=== PATIENT | male | born 1940 | race Caucasian/White ===

== ENCOUNTER 2017-04-28 16:55 | Inpatient (IN) | payer MEDICARE ==
[~2017-04-28] VITALS: Ht 182.9 cm; Wt 105.0 kg
[2017-04-28] MEDS ORDERED: COUM1TAB17 PO (17:07)
[2017-04-28] MEDS ORDERED: ROPI0.5T PO (17:07)
[2017-04-28] MEDS ORDERED: ATIV1TAB10 PO (17:07)
[2017-04-28] MEDS ORDERED: KEPP250T5 PO (17:07)
[2017-04-28] MEDS ORDERED: BENA25TA9 PO (17:07)
[2017-04-28] MEDS ORDERED: TYLE500T78 PO (17:07)
[2017-04-28] MEDS ORDERED: NS 1,000 ML IV SCH (17:57)
[2017-04-28 18:03] LABS: BASO % 0.3 % (0.0-1.0); EOS # 0.1 K/mm3 (0.0-0.50); EOS % 1.9 % (0.0-3.0); LARGE UNSTAINED CELL # 0.1 K/mm3 (0.0-0.4); LARGE UNSTAINED CELL % 1.4 % (0.0-4.0); LYMPH % 11.5 % (24.0-44.0); MEAN CORPUSCULAR HGB CONC 33.1 g/dl (32.0-36.5); MEAN CORPUSCULAR VOLUME 93.8 fl (80.0-96.0); MONO # 0.4 K/mm3 (0.0-0.8); MONO % 4.9 % (0.0-5.0); NEUTROPHILS % 80.1 % (36.0-66.0); PLATELET COUNT, AUTOMATED 172 k/mm3 (150-450); WHITE BLOOD COUNT 7.5 K/mm3 (4.0-10.0)
[2017-04-28 18:10] LABS: ALBUMIN 4.3 GM/DL (3.2-5.2); ALBUMIN/GLOBULIN RATIO 1.43 (1.00-1.93); ALKALINE PHOSPHATASE 108 U/L (45-117); ALT/SGPT 56 U/L (12-78); ANION GAP 8 MEQ/L (8-16); AST/SGOT 54 U/L (15-37); BILIRUBIN,DIRECT 0.2 MG/DL (0.0-0.2); BILIRUBIN,TOTAL 0.8 MG/DL (0.2-1.0); BLOOD UREA NITROGEN 14 MG/DL (7-18); CALCIUM LEVEL 8.7 MG/DL (8.8-10.2); CARBON DIOXIDE LEVEL 28 MEQ/L (21-32); CHLORIDE LEVEL 103 MEQ/L (98-107); CREATININE FOR GFR 1.18 MG/DL (0.70-1.30); GLOMERULAR FILTRATION RATE > 60.0 (>42); GLUCOSE, FASTING 139 MG/DL (83-110); PHOSPHORUS LEVEL 3.5 MG/DL (2.5-4.9); POTASSIUM SERUM 4.1 MEQ/L (3.5-5.1); SODIUM LEVEL 139 MEQ/L (136-145); TOTAL PROTEIN 7.3 GM/DL (6.4-8.2)
--- NOTE | 2017-04-28 18:39 | REP ---
CT BRAIN WITHOUT CONTRAST: 04/28/2017. Comparison: 05/29/2016. Clinical history: Status epilepticus. Ventricles are midline, symmetric and their size proportionate to the mild diffuse atrophy. Atrophy is unchanged and is greatest in the temporal and frontal lobes but age appropriate. There are heterogeneous low attenuation white matter changes bilaterally in the periventricular region representing small-vessel ischemic change. There is no vascular territory infarct, intracranial hemorrhage, mass or mass effect. No extra-axial fluid collections. Calcifications in the right basal ganglia are normal findings for this age group. Brainstem unremarkable. Cerebellum symmetric and grossly intact. Basal cisterns intact. There are vascular calcifications in the carotid siphons, right greater than left. Mastoids and visualized sinuses were clear. The skull base and calvarium show no fracture or focal lesion. Impression: 1. Chronic small vessel white matter ischemic change of aging with mild cerebral atrophy in proportion of ventricular size. No intracranial hemorrhage, acute infarct, mass or edema. No midline shift. Stable exam. Signed by Kei Viera MD 04/29/2017 11:38 A
[2017-04-28 18:54] LABS: INR 2.13
--- NOTE | 2017-04-28 19:11 | REP ---
AP PORTABLE CHEST: 04/28/2017: Clinical history: Status epilepticus. No comparison study. Findings: Semi-erect portable chest with lordotic projection limits evaluation of posterior and lower lung zones. Sternotomy wires and cardiac valve seen on abdominal CT representing an aortic valve replacement air. A there is further enlargement of the cardiac silhouette by low-level inflation semi-erect lordotic portable technique. No fredo edema. The aorta is calcified and tortuous. Airway is intact. Underlying fibrotic changes are seen. The posterior lower lung zones are not evaluated. I could not exclude posterior effusions or infiltrates. No gross infiltrate or fredo edema. There is a right total shoulder arthroplasty. Impression: 1. Cardiomegaly with left and right heart enlargement suspected with sternotomy wires and aortic valve replacement. 2. Tortuous calcified aorta. 3. Somewhat hypoinflated chest without gross infiltrate. Although posterior lower lung zone infiltrates or effusions would not be visible on this lordotic portable somewhat hypoinflated study. Signed by Kei Viera MD 04/29/2017 11:40 A
[2017-04-28 19:36] LABS: METHADONE URINE NEGATIVE (NEGATIVE)
[2017-04-28] MEDS ORDERED: DIPH50CA PO (20:12)
[2017-04-28] MEDS ORDERED: KEPP500T5 PO (20:12)
[2017-04-28] MEDS: NS 1,000 ML IV SCH (20:15)
[2017-04-28] MEDS ORDERED: LORA-376 PO (20:15)
[2017-04-28] MEDS ORDERED: LORazepam 2 MG/ML VIAL (J2060) IV PRN (20:15)
[2017-04-28] MEDS ORDERED: WARF-23 PO (20:18)
[2017-04-28] MEDS ORDERED: WARF-21 PO (20:18)
[2017-04-28] MEDS ORDERED: rOPINIRole 0.25 MG TAB(REQUIP) PO PRN (20:45)
--- NOTE | 2017-04-28 21:15 | IPNPDOC ---
Text Note Date of Service The patient was seen on 04/28/17. NOTE Patient febrile overnight, which could be potential cause of infection. UA neg, cxr neg with no respiratory complaint. f/u Bcx, cardiac marker, crp, consider getting tte, starting rocephin and vanco, MRSA sceen. respiratory panel.IVF VS,Fishbone, I+O VS, Fishbone, I+O Laboratory Tests 04/28/17 17:31 Red Blood Count 4.92, Mean Corpuscular Volume 93.8, Mean Corpuscular Hemoglobin 31.0, Mean Corpuscular Hemoglobin Concent 33.1, Red Cell Distribution Width 14.0 , Neutrophils (%) (Auto) 80.1 H, Lymphocytes (%) (Auto) 11.5 L, Monocytes (%) ( Auto) 4.9, Eosinophils (%) (Auto) 1.9, Basophils (%) (Auto) 0.3, Neutrophils # ( Auto) 6.0, Lymphocytes # (Auto) 1.0 L, Monocytes # (Auto) 0.4, Eosinophils # ( Auto) 0.1, Basophils # (Auto) 0.0 Vital Signs Date Time Temp Pulse Resp B/P (MAP) Pulse Ox O2 Delivery O2 Flow Rate FiO2 04/28/17 20:47 92 147/83 (104) 97 04/28/17 17:00 97.7 16 Room Air RALPH VOSS MD Apr 28, 2017 21:15
--- NOTE | 2017-04-28 21:21 | HPE ---
DATE OF ADMISSION: 04/28/2017 PRIMARY CARE PROVIDER: Mercy Burton DO NEUROLOGIST: Gui Syed M.D. at [facility] in [place]. CHIEF COMPLAINT: Seizure. HISTORY OF PRESENT ILLNESS: This is a 77-year-old male patient from [place], [place] with underlying medical history of aortic valve replacement, history of complex partial seizure, last seizure 10 months ago, first diagnosed 2014, cataracts, kidney stones, hernia. As per patient's , patient was doing some work in their cottage, was a bit fatigued and also dehydrated, around 12 noon patient developed an episode of seizure. As per patient's , his seizure is usually patient stares blindly into space, no tonic-clonic movement, but is following commands, but alert and oriented times zero. Patient's instructed the patient and assisted the patient into the cottage, giving the patient lorazepam 0.5 mg times two tablets and subsequently patient went to sleep and woke up at 3 p.m. Around 3:30 p.m., patient had another episode lasting about less than 3 minutes. Subsequently, patient presented to the hospital. In the hospital waiting room, patient had another episode, was reported to be incontinent. No tonic-clonic movement. No tongue biting. No foaming. Patient had altered mentation during the episodes, but no tonic-clonic movement. As per patient's , this is a typical presentation of the patient's seizures. The neurology fellow from [facility] was contacted who recommended increasing the dose of Keppra to 3000 mg once a day and followup with outpatient neurologist, after discussion with Dr. Chowdhury in the emergency room, it is recommended that patient be observed overnight in the hospital given three episodes of seizure. The patient is currently alert and oriented times three, a bit fatigued. Denies any chest pain , pressure or discomfort. Denies any focal neurological deficits, is almost back to baseline. Mena catheter was placed in the emergency room to obtain urine sample. Denies any headache, vision change. No head trauma, no falls. ALLERGIES: Allergic to CEFDINIR, CIPRO, METHYLPREDNISONE, and MORPHINE. PAST MEDICAL HISTORY: 1. Complex partial seizure, last seizure episode 10 months ago. 2. Aortic valve replacement. 3. Cataracts. 4. Hernia. 5. Kidney stones. Denies history of CVA or heart attack. PAST SURGICAL HISTORY: 1. Bilateral cataract surgery. 2. Cholecystectomy. 3. Hernia repair. 4. Bilateral knee replacement. 5. Right shoulder replacement. SOCIAL HISTORY: Quit smoking in 1970. Drank one shot of whiskey 2 nights ago, only drinks occasionally, very rarely, maybe once a week to once every 2 weeks. Denies any other illicit drug use. FAMILY HISTORY: Denies family history of premature CVA or premature myocardial infarctions (MIs). REVIEW OF SYSTEMS: Positive for fatigue, seizure episode, and all other review of systems are negative. HOME MEDICATIONS: - acetaminophen 1000 mg by mouth four times a day as needed - Benadryl 50 mg by mouth nightly - Keppra 3000 mg by mouth nightly - lorazepam 0.5 mg by mouth as needed for seizure, 1 mg by mouth as needed for seizure - Requip 0.5 mg by mouth nightly for restless legs - Coumadin 5 mg by mouth three times a week, 7.5 mg by mouth four times a week on Thursday, Thursday, Thursday, and Thursday PHYSICAL EXAMINATION: VITAL SIGNS: Temperature 97.7, pulse 88, blood pressure 149/78, pulse oximetry 97% on room air, respirations 16. GENERAL: Patient alert and oriented times three, in no acute distress. Responding to questions appropriately. HEENT: Normocephalic, atraumatic. PULMONARY: Bilaterally clear to auscultation. CARDIAC: Regular rate and rhythm. 2/6 systolic murmur. ABDOMEN: Soft, nontender, nondistended. Positive bowel sounds. EXTREMITIES: No edema bilateral lower extremities. NEUROLOGIC: Cranial nerves II-XII grossly intact. Able to move all four extremities. No focal neurological deficits. LABORATORY DATA: WBC 7.5, hemoglobin and hematocrit 15.3/46.1, platelets 172. Chemistry: Sodium 139, potassium 4.1, chloride 103, bicarbonate 28, BUN 14, creatinine 1.18, lactic acid 3.6. CT scan of the head shows chronic small vessel white matter ischemic changes of aging with mild cerebral atrophy in proportion to ventricular size. ASSESSMENT AND PLAN: This is a 77-year-old male patient with underlying medical history of complex partial seizure diagnosed August 2015, last seizure 10 months ago, aortic valve replacement, osteoarthritis with bilateral knee replacements and right shoulder replacement, kidney stones, presented with three episodes of seizure. 1. Seizure episodes. Dr. Chowdhury from emergency room has discussed with the neurology fellow covering at [facility]. Recommending increasing Keppra to 3000 mg by mouth nightly and IV hydration, observe overnight, and outpatient followup with neurology in [place], [place]. CT scan appreciated. Neurologic checks. Seizure precautions. IV fluids for hydration. Lactic acid. Urine toxicology appreciated. Keppra level. Patient reported compliance to medications. Other than fatigue, exhaustion, and also dehydration, no other problems reported and no other inciting events or medication changes. 2. Lactic acidosis, possibly secondary to dehydration and seizure. IV fluids for hydration. Repeat lactic acid. 3. Aortic valve replacement. Patient on anticoagulation with Coumadin. Followup INR. Adjust Coumadin dosage as needed. 4. History of kidney stones. Patient currently asymptomatic. Urinalysis appreciated. Will discontinue Mena catheter in the morning. Kidney function appreciated. IV fluids for hydration. 5. Deep venous thrombosis (DVT) prophylaxis. Patient has INR of 2.13. Continue Coumadin. Followup INR. DISPOSITION: Patient admitted for monitoring overnight. Potential discharge over the next 1-2 days. Patient developed fever overnight. culture sent started zosyn and vanco, need to r/o endocarditis given artificial aortic valve. TTE ordered MTDD
[2017-04-28] MEDS: ACETAMINOPHEN TAB 650MG DOSE (2X325MG) PO PRN (21:23)
[2017-04-28] MEDS: diphenhydrAMINE 50 MG CAP PO SCH (21:23)
[2017-04-28] MEDS ORDERED: SODIUM CHLORIDE 0.9% 1000 ML IV ONE (21:30)
[2017-04-28] MEDS: hydrALAZINE INJ 20 MG/ML VIAL IV SCH (23:31)
[2017-04-28] MEDS: PIPERACILLIN/TAZOBACTAM SOD 3.375 GM in D5W MINI-BAG PLUS 50 ML IV SCH (23:49)
[2017-04-29] VITALS (10 sets, daily range): BP systolic 114–155; BP diastolic 68–89; PULSE 80–84
[2017-04-29] MEDS ORDERED: VANCOMYCIN HCL 1,000 MG, VIAL MATE ADAPTER 1 EACH in D5W 250 ML IV ONE ×3
[2017-04-29] MEDS ORDERED: TEMAZEPAM 7.5 MG CAP PO ONE (00:45)
[2017-04-29] MEDS: ACETAMINOPHEN TAB 650MG DOSE (2X325MG) PO PRN (03:48)
--- NOTE | 2017-04-29 04:19 | PHACANCOPD ---
PHARMACY VANCOMYCIN DOSING Pt Demographics Demographics Patient Age:77 , Weight:102.000 , Gender: male Adjusted Body Weight Date: 04/29/17, Adjusted Body Weight: [87.36] Kg Vancomycin Vancomycin indication: ENDOCARDITIS Vancomycin Target Ranges: 15-20 mcg/ml Vancomycin Load Y/N: No Load Dose Date Time Vancomycin Load Dose: Date: Time: Vancomycin Dose Date: 04/29/17. Current Vancomycin Dose: [1g@0100,THEN q12H@09] Intermittent Dosing?: No Labs Labs Laboratory Tests 04/28/17 17:31 Red Blood Count 4.92, Mean Corpuscular Volume 93.8, Mean Corpuscular Hemoglobin 31.0, Mean Corpuscular Hemoglobin Concent 33.1, Red Cell Distribution Width 14.0 , Neutrophils (%) (Auto) 80.1 H, Lymphocytes (%) (Auto) 11.5 L, Monocytes (%) ( Auto) 4.9, Eosinophils (%) (Auto) 1.9, Basophils (%) (Auto) 0.3, Neutrophils # ( Auto) 6.0, Lymphocytes # (Auto) 1.0 L, Monocytes # (Auto) 0.4, Eosinophils # ( Auto) 0.1, Basophils # (Auto) 0.0 Micro Microbiology 04/29/17 Blood Culture, Received Pending 04/28/17 Blood Culture, Received Pending 04/28/17 Urine Culture, Received Pending Creatinine Clearance Date:04/29/17. Creatinine Clearance: [63.7]. Pending Labs Vanco trough due 04/30 0800 Assessment and Plan Maintaining Current Dose?: Yes Reason for dose change: No Dose Change Pharmacist Note Pharmacist Note Date: 04/29/17. Pharmacist note:77 YOM: scr=1.18,CRCL=63.7(CALCULATED) ENDOCARDITIS (15-20):PIP-TAZO 3.375 gm IV q8H + Vancomycin per consult:Gave Vanco 1 GM@04/29@0100,then 1 gm iv Q12h@09: trough scheduled for 04/30@0800(prior to 4th dose DENITA LANTIGUA PHARMACY Apr 29, 2017 04:19
[2017-04-29] MEDS: NS 1,000 ML IV SCH ×2 (04:22→21:05)
[2017-04-29 05:53] LABS: MEAN CORPUSCULAR HEMOGLOBIN 32.3 pg (27.0-33.0); MEAN CORPUSCULAR HGB CONC 34.8 g/dl (32.0-36.5); MEAN CORPUSCULAR VOLUME 92.8 fl (80.0-96.0); RED CELL DISTRIBUTION WIDTH 13.9 % (11.5-14.5)
--- NOTE | 2017-04-29 05:59 | ECGEPIP ---
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
[2017-04-29 06:00] LABS: INR 2.41
[2017-04-29] MEDS: hydrALAZINE INJ 20 MG/ML VIAL IV SCH ×4 (06:00→23:53)
[2017-04-29 06:08] LABS: ALBUMIN 3.3 GM/DL (3.2-5.2); ALBUMIN/GLOBULIN RATIO 1.18 (1.00-1.93); ALKALINE PHOSPHATASE 76 U/L (45-117); ALT/SGPT 43 U/L (12-78); ANION GAP 5 MEQ/L (8-16); AST/SGOT 32 U/L (15-37); BLOOD UREA NITROGEN 13 MG/DL (7-18); CALCIUM LEVEL 7.7 MG/DL (8.8-10.2); CARBON DIOXIDE LEVEL 27 MEQ/L (21-32); CHLORIDE LEVEL 104 MEQ/L (98-107); CREATININE FOR GFR 1.03 MG/DL (0.70-1.30); GLOMERULAR FILTRATION RATE > 60.0 (>42); GLUCOSE, FASTING 120 MG/DL (83-110); MAGNESIUM LEVEL 1.9 MG/DL (1.8-2.4); SODIUM LEVEL 136 MEQ/L (136-145); TOTAL PROTEIN 6.1 GM/DL (6.4-8.2)
[2017-04-29] MEDS: PIPERACILLIN/TAZOBACTAM SOD 3.375 GM in D5W MINI-BAG PLUS 50 ML IV SCH ×3 (06:15→22:30)
[2017-04-29] MEDS: SENOKOT S TAB PO SCH ×2 (09:00→21:06)
[2017-04-29] MEDS: VANCOMYCIN HCL 1,000 MG, VIAL MATE ADAPTER 1 EACH in D5W 250 ML IV SCH ×2 (09:14→21:06)
--- NOTE | 2017-04-29 15:39 | IPN ---
DATE: 04/29/2017 SUBJECTIVE: The patient tells me that he is feeling fine at this time. He has no complaints. He denies fevers, chills, chest pain, shortness of breath, nausea, or vomiting. OBJECTIVE: VITAL SIGNS: Maximum temperature (T-max) 103.9, temperature current 98.8, pulse 74, respiratory rate 20, blood pressure 131/84, oxygen saturation 96% on room air. GENERAL: He is a pleasant, elderly, man who appears younger than his stated age, laying flat in bed in no distress. He is accompanied by his . NEUROLOGIC: Cranial nerves II-XII are grossly intact. HEENT: He has moist mucous membranes. No elevation in central venous pressure (CVP). CARDIOVASCULAR: S1, S2, regular. Prominent mechanical S2. RESPIRATORY: Clear. ABDOMEN: Benign. EXTREMITIES: No clubbing, cyanosis, or edema. LABORATORY STUDIES: WBC 9.0, hemoglobin 12.9, hematocrit 37.1, platelet count 154. Chemistry panel: Sodium 136, potassium 4.0, chloride 104, bicarbonate 27, BUN 13, creatinine 1.0, lactic acid is 1.1 resolved from 3.6 at the time of admission, CK is 429 down from 591. Two sets of cardiac enzymes are negative. CRP is 0.97. INR is 2.4. A Keppra level is pending. Otherwise, urine toxicology is negative. Microbiology: Two sets of blood cultures are pending. A urine culture is pending. IMAGING STUDIES: The patient had a CT scan of the head which revealed chronic small vessel white matter ischemic changes. No intracranial hemorrhage, acute infarct, mass or edema. Chest x-ray revealed tortuous calcified aorta, cardiomegaly with left and right heart enlargement suspected with sternotomy wires and aortic valve replacement. ASSESSMENT AND PLAN: This is a 77-year-old man admitted with breakthrough complex partial seizures and fever. PROBLEMS: 1. Breakthrough complex partial seizures. Dr. Chowdhury in the emergency room was in contact with [facility] where the patient follows for neurology services. They had advised increasing his Keppra to 3 grams by mouth nightly and IV hydration with overnight observation. This has been completed. The patient has had no further seizure-like episodes overnight and is doing quite well. 2. Fever, unclear etiology but given that the patient is having breakthrough seizures and has an aortic valve replacement, an echocardiogram has been ordered and blood cultures. The patient has been empirically started on broad-spectrum antibiotics. We will continue to followup his cultures and followup echocardiogram report. Should they both be negative, we could likely discontinue antibiotics after 48 hours. 3. Aortic valve replacement. The patient is on Coumadin. We will followup his international normalized ratio (INR). He is just barely subtherapeutic. We will continue to monitor him. 4. Lactic acidosis, likely related to seizures, resolved. 5. Mild rhabdomyolysis, likely secondary to seizures, resolved. 6. History of kidney stones, asymptomatic at this time. 7. Deep vein thrombosis (DVT) prophylaxis. The patient is on Coumadin. 8. Restless leg syndrome. The patient is on Requip.
[2017-04-29] MEDS ORDERED: WARFARIN SOD 7.5 MG TAB PO SCH (17:00)
[2017-04-29] MEDS: diphenhydrAMINE 50 MG CAP PO SCH (21:06)
[2017-04-29] MEDS: levETIRAcetam **XR** 500 MG TABLET PO SCH (21:06)
[2017-04-30] VITALS (7 sets, daily range): BP systolic 112–168; BP diastolic 57–87
[2017-04-30] MEDS: NS 1,000 ML IV SCH (04:49)
[2017-04-30 04:59] LABS: MEAN CORPUSCULAR HEMOGLOBIN 30.6 pg (27.0-33.0); MEAN CORPUSCULAR HGB CONC 33.3 g/dl (32.0-36.5); RED CELL DISTRIBUTION WIDTH 13.9 % (11.5-14.5)
[2017-04-30 05:06] LABS: INR 2.55
[2017-04-30 05:15] LABS: ALBUMIN/GLOBULIN RATIO 1.11 (1.00-1.93); ALKALINE PHOSPHATASE 67 U/L (45-117); ALT/SGPT 36 U/L (12-78); ANION GAP 4 MEQ/L (8-16); AST/SGOT 28 U/L (15-37); BILIRUBIN,TOTAL 0.7 MG/DL (0.2-1.0); BLOOD UREA NITROGEN 10 MG/DL (7-18); CARBON DIOXIDE LEVEL 29 MEQ/L (21-32); CHLORIDE LEVEL 110 MEQ/L (98-107); CREATININE FOR GFR 1.01 MG/DL (0.70-1.30); GLOMERULAR FILTRATION RATE > 60.0 (>42); GLUCOSE, FASTING 97 MG/DL (83-110); MAGNESIUM LEVEL 2.1 MG/DL (1.8-2.4); POTASSIUM SERUM 3.9 MEQ/L (3.5-5.1); SODIUM LEVEL 143 MEQ/L (136-145); TOTAL PROTEIN 5.7 GM/DL (6.4-8.2)
[2017-04-30] MEDS: hydrALAZINE INJ 20 MG/ML VIAL IV SCH (05:30)
[2017-04-30] MEDS: PIPERACILLIN/TAZOBACTAM SOD 3.375 GM in D5W MINI-BAG PLUS 50 ML IV SCH ×3 (06:26→23:15)
[2017-04-30] MEDS: VANCOMYCIN HCL 1,000 MG, VIAL MATE ADAPTER 1 EACH in D5W 250 ML IV SCH ×2 (08:40→21:15)
[2017-04-30] MEDS: SENOKOT S TAB PO SCH ×2 (08:40→21:15)
[2017-04-30] MEDS ORDERED: SLF 3 ML SYR IV PRN (10:00)
--- NOTE | 2017-04-30 15:54 | PHACANCOPD ---
PHARMACY VANCOMYCIN DOSING Pt Demographics Demographics Patient Age:77 , Weight:105.000 , Gender: male Adjusted Body Weight Date: 04/29/17, Adjusted Body Weight: [87.36] Kg Events Past 24 Hours Events Past 24 Hours: NO: Dialysis, Diuretic Therapy, Change in CrCl, Fever, Elevation in WBC, Pending Diagnostics, Pending Procedures, Other Vancomycin Vancomycin indication: ENDOCARDITIS Vancomycin Target Ranges: 15-20 mcg/ml Vancomycin Load Y/N: No Load Dose Date Time Vancomycin Load Dose: Date: Time: Vancomycin Dose Date: 04/30/17. Current Vancomycin Dose: [1GM IV Q12H, extra 750mg dose] Date: 04/29/17. Current Vancomycin Dose: [1g@0100,THEN q12H@09] Intermittent Dosing?: No Labs Labs Item Value Date Time White Blood Count 9.0 K/mm3 04/29/17 0532 White Blood Count 6.0 K/mm3 04/30/17 0439 Creatinine 1.01 MG/DL 04/30/17 0439 Vital Signs Label Value Date Time Patient Temperature 98.6 degrees F 04/30/17 1200 Temperature Source Tympanic 04/30/17 1200 Micro Microbiology 04/29/17 Blood Culture - Preliminary, Resulted No growth after 24 hours . All specim... 04/28/17 Blood Culture - Preliminary, Resulted No growth after 24 hours . All specim... 04/30/17 Respiratory Virus Panel (PCR) ([facility]DISON) - Final, Complete 04/28/17 Urine Culture - Final, Complete Creatinine Clearance Date:04/29/17. Creatinine Clearance: [63.7]. Pending Labs Vanco trough due 04/30 0800 Assessment and Plan Maintaining Current Dose?: Yes Reason for dose change: Trough too low Pharmacist Note Pharmacist Note 04/30: Patient's trough came back at 10.4 today. His WBC is within normal limits, he is afebrile, and micro is negative to date. He was given an extra 750mg dose to help increase his trough, then continued on Vancomycin 1gm IV q12h. We will continue to monitor and make adjustments as necessary. Date: 04/29/17. Pharmacist note:77 YOM: scr=1.18,CRCL=63.7(CALCULATED) ENDOCARDITIS ():PIP-TAZO 3.375 gm IV q8H + Vancomycin per consult:Gave Vanco 1 GM@6/14@0100,then 1 gm iv Q12h@09: trough scheduled for 04/30@0800(prior to 4th dose GABRIELE WHEELER PHARMACY Apr 30, 2017 15:54
[2017-04-30] MEDS ORDERED: VANCOMYCIN HCL 750 MG, VIAL MATE ADAPTER 1 EACH in D5W 250 ML IV ONE (16:00)
[2017-04-30] MEDS: SLF 3 ML SYR IV SCH ×2 (16:05→21:16)
[2017-04-30] MEDS ORDERED: WARFARIN SOD 5 MG TAB PO SCH (17:00)
--- NOTE | 2017-04-30 19:49 | ECHO ---
DATE OF PROCEDURE: 04/30/2017 REFERRING PHYSICIAN: Dr. Green INDICATION: Vegetation. The patient measures 183 cm and weighs 102 kg. DIMENSIONS: IVS: 1.4 LV: 3.9 LVPW: 1.2 FINDINGS: The study is of good technical quality. Left ventricle is of normal size and systolic function with estimated left ventricular ejection fraction (LVEF) 60-65%. Mild left ventricular hypertrophy is noted. Right ventricle is not enlarged. Both atria are severely enlarged. There is reportedly [employer]am[employer] prosthesis in aortic position. The visualization was rather limited. On some views it appears suspicious that there might be vegetation attached, but it is by no means conclusive. Mitral valve appears relatively normal. There are mild degenerative abnormalities but mobility is preserved. Tricuspid and pulmonic valves also appear normal. No pericardial effusion is noted. Inferior vena cava is dilated but collapses with respiration indicative typically of mildly elevated central venous pressure. Aortic root and aortic arch appear normal. Abdominal aorta was not well seen. Doppler interrogation of aortic valve reveals trace insufficiency. Peak gradient across the valve is 36 and mean gradient 19, that would indicate mildly increased gradient. Mitral valve exhibits approximately mild to moderate insufficiency and no stenosis. There is mild tricuspid insufficiency. Calculated pulmonary artery pressure is at least in low 40s or higher corresponding to at minimum moderate pulmonary hypertension. Pulmonic valve exhibits mild insufficiency. Evaluation of diastolic function reveals grade 2 diastolic dysfunction indicative of elevated left ventricular end-diastolic pressure (LVEDP). Tissue Doppler velocities of septal and mitral annulus were 6.8 and 9.4 cm/s respectively. CONCLUSIONS: 1. The study is of acceptable technical quality. 2. Normal left ventricular (LV) size with mild left ventricular hypertrophy (LVH) and preserved LV systolic function. Grade 2 [address] [employer]am[employer] prosthesis in aortic position that was poorly seen. There is minimally increased gradient across the valve and trivial insufficiency. No definite vegetations are seen. 4. Mild to moderate mitral insufficiency. 5. Mild tricuspid insufficiency. COMMENTS: Subacute bacterial endocarditis (SBE) prophylaxis is recommended. If high clinical suspicion for any bacterial endocarditis is present, then transesophageal echocardiogram will be much more accurate in evaluating prosthetic valve.
[2017-04-30] MEDS: levETIRAcetam **XR** 500 MG TABLET PO SCH (21:16)
--- NOTE | 2017-04-30 21:48 | IPN ---
DATE: 04/30/2017 SUBJECTIVE: The patient tells me that he feels great. He has no complaints at this time. He denies any further episodes of seizures. His has been with him [id number] also confirms that he has not had any further seizure episodes. OBJECTIVE: VITAL SIGNS: Temperature 98.5, pulse 70, respiratory rate 20, blood pressure 143/82, oxygen saturation 95% on room air. GENERAL: He is a very pleasant, elderly, man laying flat in bed, in no acute distress. NEUROLOGIC: Cranial nerves II-XII are grossly intact. HEENT: He has moist mucous membranes. No elevation in central venous pressure (CVP). CARDIOVASCULAR: S1 with a prominent S2 with a crescendo-decrescendo systolic murmur. RESPIRATORY: Completely clear. ABDOMEN: Obese. Bowel sounds are present. The abdomen is soft. EXTREMITIES: No clubbing, cyanosis, or edema. LABORATORY STUDIES: WBC 6.0, hemoglobin 12.6, hematocrit 37.8, platelet count 145. ESR is 6. Chemistry panel: Sodium 143, potassium 3.9, chloride 110, bicarbonate 29, BUN 10, creatinine 1.0, CK is 3.38 trending down. Two sets of cardiac enzymes are negative. CRP is 0.68 down from 0.97. INR is 2.5. Urinalysis is 2+ positive for blood with 26 RBCs, 1+ protein. Urine toxicology is negative. Keppra level is pending. Microbiology: Respiratory PCR panel is negative. Blood cultures preliminarily are negative at 24 hours. A urine culture is negative. No new imaging. ASSESSMENT AND PLAN: This is a 77-year-old man admitted with breakthrough complex partial seizures and fever. PROBLEMS: 1. Breakthrough complex partial seizures. The emergency room staff had contacted [facility] where the patient follows with his neurologist. They had advised increasing his Keppra to 3 grams which has been done as well as IV hydration as he appeared to be quite dehydrated at the time of admission. This has been completed and he has had no further seizure-like episodes. He is doing quite well. 2. Fever, unclear etiology at this time. The patient had breakthrough seizures. He has a history of an aortic valve. He does have a murmur. An echocardiogram has been ordered and blood cultures have been ordered. Echocardiogram was completed this morning. We are awaiting for the report. Blood cultures are thus far negative. He is on broad-spectrum antibiotics. Should his cultures remain negative for an additional 24 hours and echo not reveal any vegetation, would likely narrow antibiotic spectrum and he can be discharged with close followup with his normal providers. 3. Aortic valve replacement. The patient is on Coumadin. He is therapeutic with his international normalized ratio (INR) with a target of 2.5 to 3.5. We will continue to monitor him. 4. Lactic acidosis, likely related to seizures, resolved. 5. Mild rhabdomyolysis, possibly related to seizures, improving. We will continue with IV fluids. 6. History of nephrolithiasis, asymptomatic at this time. 7. Deep vein thrombosis (DVT) prophylaxis. The patient is on Coumadin. 8. Restless leg syndrome. The patient is on Requip as needed. DISPOSITION: If the patient's echocardiogram is unrevealing and his cultures remain negative, he can likely have his antibiotics transitioned to oral and be discharged within the next 24-48 hours.
[2017-04-30] MEDS: diphenhydrAMINE 50 MG CAP PO SCH (23:15)
[2017-05-01 05:27] LABS: MEAN CORPUSCULAR HEMOGLOBIN 31.4 pg (27.0-33.0); MEAN CORPUSCULAR HGB CONC 34.2 g/dl (32.0-36.5); MEAN CORPUSCULAR VOLUME 91.9 fl (80.0-96.0); RED CELL DISTRIBUTION WIDTH 13.9 % (11.5-14.5); WHITE BLOOD COUNT 6.7 K/mm3 (4.0-10.0)
[2017-05-01 05:35] LABS: INR 2.47
[2017-05-01 05:52] LABS: ALBUMIN 3.3 GM/DL (3.2-5.2); ALBUMIN/GLOBULIN RATIO 1.22 (1.00-1.93); ALKALINE PHOSPHATASE 84 U/L (45-117); ALT/SGPT 32 U/L (12-78); ANION GAP 4 MEQ/L (8-16); AST/SGOT 23 U/L (15-37); BILIRUBIN,TOTAL 0.5 MG/DL (0.2-1.0); BLOOD UREA NITROGEN 9 MG/DL (7-18); CALCIUM LEVEL 8.1 MG/DL (8.8-10.2); CARBON DIOXIDE LEVEL 29 MEQ/L (21-32); CHLORIDE LEVEL 108 MEQ/L (98-107); CREATININE FOR GFR 1.01 MG/DL (0.70-1.30); GLOMERULAR FILTRATION RATE > 60.0 (>42); GLUCOSE, FASTING 107 MG/DL (83-110); MAGNESIUM LEVEL 2.2 MG/DL (1.8-2.4); POTASSIUM SERUM 3.7 MEQ/L (3.5-5.1); SODIUM LEVEL 141 MEQ/L (136-145)
[2017-05-01 06:01] VITALS: BP 137/81
[2017-05-01] MEDS: PIPERACILLIN/TAZOBACTAM SOD 3.375 GM in D5W MINI-BAG PLUS 50 ML IV SCH (06:03)
[2017-05-01] MEDS: SLF 3 ML SYR IV SCH (06:04)
[2017-05-01 07:10] VITALS: BP 136/84
[2017-05-01] MEDS ORDERED: DOXY-278 PO (07:43)
[2017-05-01] MEDS ORDERED: LEVE500XR PO (07:43)
--- NOTE | 2017-05-02 10:49 | DSES ---
DATE OF ADMISSION: 04/28/2017 DATE OF DISCHARGE: 05/01/2017 DISCHARGE DIAGNOSIS: Complex partial seizures. SECONDARY DIAGNOSES: Fever. Aortic valve replacement. Lactic acidosis. Rhabdomyolysis. Restless leg syndrome. HOSPITAL COURSE: The patient is a 77-year-old man with a known seizure disorder, known to have complex partial seizures, normally follows with [facility] ([facility]) in [place]. He presented to the hospital with several breakthrough seizures. His neurologist was contacted from the emergency room and suggested increasing his Keppra dosing to 3 grams every night. This was completed. The patient was also noted to have a fever. Given the increased seizure activity, his history of valve replacement and cardiac murmur, blood cultures were drawn, and he was admitted to the progressive care unit for monitoring. A respiratory PCR panel was checked, which was negative, which did not reveal any viral infection. His fevers gradually trended down. He was empirically on vancomycin and Zosyn. An echocardiogram was completed, which did not reveal any concerning vegetations on his heart valve. The patient did not have leukocytosis, tachycardia or appear septic. At this time, the patient has remained medically stable with no further seizure activity and his cultures were all negative, and his echo was negative as outlined above. He is medically stable for discharge home. SUBJECTIVE: Today, the patient reports he feels great, has no complaints and is excited to go home. OBJECTIVE: VITAL SIGNS: Temperature 97, pulse 68, respiratory rate 20, blood pressure 136/84, oxygen saturation 97% on room air. GENERAL: He is a very pleasant elderly man who appears younger than his stated age. He is accompanied by his . The patient is in no distress. HEENT: Cranial nerves II-XII are grossly intact. He has moist mucous membranes. No elevation of central venous pressure (CVP). CARDIOVASCULAR EXAM: S1, S2, regular. He has a mechanical S2 with a crescendo-decrescendo systolic murmur. RESPIRATORY EXAM: Clear. ABDOMINAL EXAM: Obese. EXTREMITIES: No clubbing, cyanosis or edema. LABORATORY STUDIES: WBC 6.7, hemoglobin 13.9, platelet count 156. ESR was 6. Chemistry panel: Sodium 141, potassium 3.7, chloride 108, bicarbonate 29, BUN 9, creatinine 1.0. CK this morning is 235. His INR today is 2.47. Toxicology was completely negative. A Keppra level was in the therapeutic range. Microbiology: He had blood culture negative at 48 hours, PCR panel for viral infections which was negative, a urine culture which was negative. He did have a CT scan of the head, which revealed chronic small vessel white matter ischemic changes and was a stable exam. He also had a chest x-ray that revealed tortuous calcified aorta, cardiomegaly. ASSESSMENT AND PLAN: This is a 77-year-old man with breakthrough complex partial seizures. Problems: 1. Breakthrough complex partial seizures. Patient's Keppra has been titrated up to 3 grams nightly. He did receive some IV hydration as there was concern he may have been dehydrated at the time of admission. He has had no further episodes. 2. Fever, unclear etiology. All of his cultures remain negative. It could have been a viral infection that did not present on the respiratory PCR panel. However, he has had 2 days of IV antibiotics. I will send him home with doxycycline to complete an additional 5-day course. He has been advised that should he have any fevers or begin to feel worse, he should return to the emergency room. 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 3. Aortic valve replacement. The patient's goal International normalized ratio (INR) is 2.5-3.5, which he has been around fairly close during hospitalization. He is to continue with Coumadin. 4. Lactic acidosis. It was, at the time of admission, related to seizures. It did resolve. 5. Mild rhabdomyolysis. 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 It did resolve with IV fluid. 6. Nephrolithiasis. Asymptomatic. 7. Restless leg syndrome. The patient will continue with Requip as needed. 8. Deep vein thrombosis (DVT) prophylaxis. The patient was therapeutic with Coumadin. DISPOSITION: The patient is being discharged home to the care of his . His activity is as tolerated. His diet is as prior to admission. He is to followup with his primary care provider (PCP) and his neurologist as soon as possible. He is to return to the emergency room if his symptoms worsen or if he develops fever. MEDICATIONS AT THE TIME OF DISCHARGE: - doxycycline 100 mg every 12 hours for 5 days - Keppra 3 grams nightly - Tylenol 1 gram four times daily as needed for pain - lorazepam 1/2 mg as needed for seizures - Requip 1/2 mg at bedtime as needed for restlessness - Coumadin 5 mg three times a week, Thursday, , Thursday; 7.5 mg Thursday, Thursday, Thursday, Thursday. Greater than 30 minutes spent organizing disposition.
== END 2017-05-01 10:10 | disposition home or self-care (01) | DRG 101 ==
LOC: M ED 18:02 → M ED INP 20:06 → OBSVTOIN 21:12 → M PCU 04-29 12:05
PROVIDERS: ADMIT Hospitalist; ATTEND Internal Medicine
DX: G40.209 Localization-related (focal) (partial) symptomatic epilepsy and epileptic syndromes with complex partial seizures, not intractable, without status epilepticus (principal); M62.82 Rhabdomyolysis; E87.2 Acidosis; G25.81 Restless legs syndrome; R50.9 Fever, unspecified; N20.0 Calculus of kidney; Z87.891 Personal history of nicotine dependence; Z96.651 Presence of right artificial knee joint; Z96.652 Presence of left artificial knee joint; Z96.611 Presence of right artificial shoulder joint; Z95.2 Presence of prosthetic heart valve; Z79.899 Other long term (current) drug therapy; Z79.01 Long term (current) use of anticoagulants